=== PATIENT | female | born 1955 | race Caucasian/White ===

== ENCOUNTER 2016-11-25 15:09 | Emergency (ER) | payer MEDICARE, BC ==
--- NOTE | ~2016-11-25 | EKG ---
PATIENT: CHICO LÓPEZ UNIT #: [id number] Ventricular Rate: 95 BPM Atrial Rate: 95 BPM P-R Interval: 158 ms QRS Duration: 86 ms Q-T Interval: 368 ms QTC Calculation(Bezet): 462 ms P [place]: 54 degrees Calculated R [place]: -14 degrees Calculated T [place]: -5 degrees Diagnosis Line: Normal sinus rhythm Diagnosis Line: Voltage criteria for left ventricular hypertrophy Diagnosis Line: Abnormal ECG Diagnosis Line: When compared with ECG of 24-NOV-2016 15:14, Diagnosis Line: (unconfirmed) Diagnosis Line: No significant change was found Diagnosis Line: Confirmed by LIZ LEMONS MD ([id number]) on Diagnosis Line: 11/26/2016 4:11:07 PM INTERPRETING MD: VESTA FOX
--- NOTE | ~2016-11-25 | CR72 ---
[facility] A Service of [facility] RADIOLOGY TEXT RESULTS PATIENT: CHICO LÓPEZ LOCATION: [facility] : 54 UNIT #: [id number] AGE: [address]: Vin Campbell MD SEX: F ORDER DR: [id number] [facility] [address] [place], [place] [address] [id number] E MR#: [id number] Acc #: [id number] NAME: CHICO LÓPEZ. : 1955 SEX: F STUDY DATE/TIME: 11/25/2016 13:27 UNIT: [facility] ROOM: STUDY DESCRIPTION: CR Chest Single View Portable Attending Physician: Vin Campbell M.D. Ordering Physician: Ed Syed Tony M.D. Primary Care Physician: Micheal Bhatia M.D. MEDICAL IMAGING REPORT This report is preliminary unless electronic signature is present EXAM Chest portable, 11/25/2016 1327 hours HISTORY 61-year-old with dizziness, nausea, vomiting and shakiness with abdominal cramping today. Patient had shoulder dislocation and reset yesterday. COMPARISON 11/24/2016 FINDINGS Portable upright chest demonstrates improved lung volumes. Heart size appears normal. There is a tortuous descending thoracic aorta without change. Improved lung volumes demonstrate resolved atelectasis at the right base. There is linear plate-like atelectasis at the left base. There is no evidence of pneumonia, edema or effusion. Interval reduction of left shoulder dislocation. IMPRESSION 1. Improved lung volumes with resolved right basilar atelectasis. There is horizontal linear atelectasis at the left base. There is no evidence of pneumonia, edema or effusion. 2. Interval reduction of the left shoulder dislocation since 11/24/2016 at 1510 hours. Dictated by... Winsome Carmichael M.D. THIS IS AN ELECTRONICALLY VERIFIED REPORT Winsome Carmichael M.D. at 11/26/2016 9:26 AM IMANI/tenzin [facility] A Service of [facility] RADIOLOGY TEXT RESULTS PATIENT: CHICO LÓPEZ LOCATION: [facility] : 54 UNIT #: [id number] AGE: [address]: Vin Campbell MD SEX: F ORDER DR: TD: 11/25/2016 20:46 JOB #: [id number] MEDICAL IMAGING REPORT COPY
[2016-11-25 13:59] LABS: BASOPHIL% 0.3 % (0-2.5); EOSINOPHIL# 0.1 X10e3 (0-0.7); HEMATOCRIT 35.1 % (35.0-45.0); HEMOGLOBIN 11.8 gm/dL (12.0-16.0); LYMPHOCYTE# 0.9 X10e3 (1.0-3.5); LYMPHOCYTE% 8.5 % (17.0-45.0); MEAN CELL VOLUME 92.2 FL (83-96); MEAN CORPUSCULAR HEMOGLOBIN 30.9 PG (28-34); MEAN CORPUSCULAR HGB CONC 33.5 g/dL (30-36); MEAN PLATELET VOLUME 8.4 FL (6.5-11.5); MONOCYTE# 0.7 X10e3 (0-1.0); MONOCYTE% 6.6 % (3.0-12.0); NEUTROPHIL# 8.4 X10e3 (1.5-7.1); NEUTROPHIL% 83.6 % (40-75); PLATELET COUNT 159 X10e3 (140-420); RED CELL DISTRIBUTION WIDTH 14.8 % (11.0-15.5); WHITE BLOOD COUNT 10.1 X10e3 (4.0-10.5)
[2016-11-25 14:00] LABS: DIFF IND NO
[2016-11-25 14:31] LABS: ALBUMIN SERUM 3.9 g/dL (3.5-5.0); BILIRUBIN, DIRECT 0.1 mg/dL (0.0-0.2); BILIRUBIN,INDIRECT 0.8 mg/dL (0.0-0.9); BILIRUBIN,TOTAL 0.9 mg/dL (0.2-2.0); BUN/CREATININE RATIO 7.6; CALCIUM SERUM 9.2 mg/dL (8.4-10.2); CREATININE SERUM 4.6 mg/dL (0.6-1.4); GLOM FILT RATE Estimated 10.3 mL/min (>60); POTASSIUM 4.1 mmol/L (3.5-5.1)
[~2016-11-25 15:09] MED LIST: ACETAMINOPHEN PO; ALDOMET250 MG PO; ALLEGRA; ALLERGY RELIEF10 M3 PO; AMBIEN PO; AMLODIPINE BESYL5 MG PO; APRESOLINE PO; ASPIRIN; ATENOLOL PO; CALCIUM ACETAT667 M1 PO; CHROMAGEN FA1 UDCAP PO; CLONIDINE PO; IRON PO; LIPITOR; LISINOPRIL10 MG PO; LORTAB 5/500 TA1 TA1 PO; MINOXIDIL PO; NEPHROCAPS CAPSU1 MG PO; NORVASC PO; PATIENT'S PHARMACY; PHENERGAN PO; PHENERGAN PR; RENAGEL PO; RENAGEL400 MG; RENAGEL403 MG PO; SENSIPAR90 MG PO; SLOW FE160 MG; TEKTURNA PO; VASOTEC; VASOTEC PO; VESICARE; VICODIN 5/500 T1 TAB PO; VITAMIN B650 MG PO; ZOCOR PO; ZYRTEC PO; [UNRECOGNIZED DRUG - OTHER] PO
[2016-11-25 15:12] LABS: INFLUENZA A NEG (NEG); INFLUENZA B NEG (NEG)
[2016-11-25 15:36] LABS: POC - CKMB 1.5 ng/mL (0.0-7.9); POC - TROPONIN <0.05 ng/mL (<=0.05)
[2016-11-25 16:01] LABS: POC - CKMB 1.6 ng/mL (0.0-7.9); POC - TROPONIN <0.05 ng/mL (<=0.05)
== END 2016-11-25 17:00 | disposition home or self-care (01) ==
LOC: CED 15:09
PROVIDERS: Emergency Medicine
DX: R11.2 Nausea with vomiting, unspecified (principal); R50.9 Fever, unspecified; I12.0 Hypertensive chronic kidney disease with stage 5 chronic kidney disease or end stage renal disease; N18.6 End stage renal disease; I25.10 Atherosclerotic heart disease of native coronary artery without angina pectoris; Z90.710 Acquired absence of both cervix and uterus
CPT/HCPCS: 36415; 71010; 80048; 80076; 82553; 82947; 84484; 85025; 87804; 93005; 96372; 99283

== ENCOUNTER 2017-02-10 13:33 | Emergency (ER) | payer MEDICARE, BC ==
--- NOTE | ~2017-02-10 | CR226 ---
[facility] A Service of [facility] RADIOLOGY TEXT RESULTS PATIENT: CHICO LÓPEZ LOCATION: [facility] : 54 UNIT #: [id number] AGE: [address]: Cortez Burrell MD SEX: F ORDER DR: [id number] [facility] [address] [place], [place] [address] [id number] E MR#: [id number] Acc #: [id number] NAME: CHICO LÓPEZ. : 1955 SEX: F STUDY DATE/TIME: 02/10/2017 14:55 UNIT: [facility] ROOM: STUDY DESCRIPTION: CR Shoulder 1 View Lt Attending Physician: Cortez Burrell M.D. Ordering Physician: Cortez Burrell M.D. Primary Care Physician: Micheal Bhatia M.D. MEDICAL IMAGING REPORT This report is preliminary unless electronic signature is present EXAM Single AP view of the left shoulder DATE 02/10/2017 at 14:55 HISTORY Status post left shoulder reduction. Left shoulder dislocation today. COMPARISON AP left shoulder 02/10/2017 at 14:01 FINDINGS The previous left anterior inferior shoulder dislocation has been satisfactorily reduced. Glenohumeral alignment is satisfactory. No fracture is seen. There is no acromioclavicular or coracoclavicular separation. Imaged left ribs appear intact. IMPRESSION Satisfactory reduction of previous left shoulder dislocation. No fracture is seen. Dictated by... Benita Lugo M.D. THIS IS AN ELECTRONICALLY VERIFIED REPORT Benita Lugo M.D. at 02/13/2017 8:30 AM H/to TD: 02/10/2017 18:28 JOB #: [id number] MEDICAL IMAGING REPORT [facility] A Service of [facility] RADIOLOGY TEXT RESULTS PATIENT: CHICO LÓPEZ LOCATION: [facility] : 53 UNIT #: [id number] AGE: [address]: Cortez Burrell MD SEX: F ORDER DR: Page 1 of 1 COPY
--- NOTE | ~2017-02-10 | CR226 ---
[facility] A Service of [facility] & [facility] RADIOLOGY TEXT RESULTS PATIENT: CHICO LÓPEZ LOCATION: [facility] : 53 UNIT #: [id number] AGE: [address]: Cortez Burrell MD SEX: F ORDER DR: [id number] [facility] [address] [place], [place] [address] [id number] E MR#: [id number] Acc #: [id number] NAME: CHICO LÓPEZ. : 1955 SEX: F STUDY DATE/TIME: 02/10/2017 14:01 UNIT: [facility] ROOM: STUDY DESCRIPTION: CR Shoulder 1 View Lt Attending Physician: Cortez Burrell M.D. Ordering Physician: Ed Doctor [id number] [facility] Primary Care Physician: Micheal Bhatia M.D. MEDICAL IMAGING REPORT This report is preliminary unless electronic signature is present EXAM Left shoulder, 02/10/2017 14:01 hours HISTORY 61-year-old with acute onset of shoulder pain when reaching behind herself today. Possible dislocation. History of multiple dislocations previously. COMPARISON 11/24/2016 FINDINGS Single AP view left shoulder demonstrates the humeral head to be displaced medially in a subcoracoid location likely an anterior dislocation. The acromioclavicular joint is normal. IMPRESSION The humeral head is displaced medially sitting in a subcoracoid location on this single view, likely an acute anterior dislocation. No definite fracture seen. Suggest post reduction films. STAT * RESULT Dictated by... Winsome Carmichael M.D. THIS IS AN ELECTRONICALLY VERIFIED REPORT Winsome Carmichael M.D. at 02/10/2017 2:29 PM Genny TD: 02/10/2017 14:19 JOB #: [id number] [facility] A Service of [facility] & [facility] RADIOLOGY TEXT RESULTS PATIENT: CHICO LÓPEZ LOCATION: [facility] #: [id number] : 53 UNIT #: [id number] AGE: [address]: Cortez Burrell MD SEX: F ORDER DR: MEDICAL IMAGING REPORT Page 1 of 1 COPY
== END 2017-02-10 15:56 | disposition home or self-care (01) ==
LOC: CED 13:33
DX: S43.005A Unspecified dislocation of left shoulder joint, initial encounter (principal); X50.9XXA Other and unspecified overexertion or strenuous movements or postures, initial encounter; Y92.009 Unspecified place in unspecified non-institutional (private) residence as the place of occurrence of the external cause; N18.6 End stage renal disease; Z88.5 Allergy status to narcotic agent
CPT/HCPCS: 23650; 73020; 96374; 96375; 99152; 99284; J3010

== ENCOUNTER 2017-03-06 18:23 | Emergency (ER) | payer MEDICARE, BC ==
--- NOTE | ~2017-03-06 | CR226 ---
[facility] A Service of [facility] & [facility] RADIOLOGY TEXT RESULTS PATIENT: CHICO LÓPEZ LOCATION: [facility] : 53 UNIT #: [id number] AGE: [address]: Cortez Burrell MD SEX: F ORDER DR: [id number] [facility] [address] [place], [place] [address] [id number] E MR#: [id number] Acc #: [id number] NAME: CHICO LÓPEZ : 1955 SEX: F STUDY DATE/TIME: 03/06/2017 19:46 UNIT: [facility] ROOM: STUDY DESCRIPTION: CR Shoulder 1 View Lt Attending Physician: Cortez Burrell M.D. Ordering Physician: Cortez Burrell M.D. Primary Care Physician: Micheal Bhatia M.D. MEDICAL IMAGING REPORT This report is preliminary unless electronic signature is present EXAM Left shoulder series. INDICATION Left shoulder dislocation. Dislocation today. Post reduction image. PROCEDURE Single frontal view of the left shoulder. COMPARISON Earlier the same day. FINDINGS Left shoulder appears to be reduced on this single image. No visible fracture. IMPRESSION Apparent successful reduction on the single frontal image. Dictated by... Vasquez Chavarria M.D. THIS IS AN ELECTRONICALLY VERIFIED REPORT Vasquez Chavarria M.D. at 03/07/2017 9:30 AM MAURO/olga TD: 03/06/2017 21:56 JOB #: [id number] MEDICAL IMAGING REPORT Page 1 of 1 COPY
--- NOTE | ~2017-03-06 | CR229 ---
[facility] A Service of [facility] & [facility] RADIOLOGY TEXT RESULTS PATIENT: CHICO LÓPEZ LOCATION: [facility] : 53 UNIT #: [id number] AGE: [address]: Cortez Burrell MD SEX: F ORDER DR: [id number] [facility] [address] [place], [place] [address] [id number] E MR#: [id number] Acc #: [id number] NAME: CHICO LÓPEZ. : 1955 SEX: F STUDY DATE/TIME: 03/06/2017 18:52 UNIT: [facility] ROOM: STUDY DESCRIPTION: CR Shoulder Min 2 View Lt Attending Physician: Cortez Burrell M.D. Ordering Physician: Isrrael Tony M.D. Primary Care Physician: Micheal Bhatia M.D. MEDICAL IMAGING REPORT This report is preliminary unless electronic signature is present EXAM Left shoulder series INDICATIONS Left shoulder pain after an injury today. PROCEDURE Three views of the left shoulder. COMPARISON 02/10/2017 FINDINGS Anterior shoulder dislocation. No visible fracture fragment. IMPRESSION Anterior shoulder dislocation. Dictated by... Vasquez Chavarria M.D. THIS IS AN ELECTRONICALLY VERIFIED REPORT Vasquez Chavarria M.D. at 03/07/2017 9:30 AM EED/tenzin TD: 03/06/2017 21:20 JOB #: [id number] MEDICAL IMAGING REPORT Page 1 of 1 COPY
== END 2017-03-06 20:33 | disposition home or self-care (01) ==
LOC: CED 18:23
DX: S43.085A Other dislocation of left shoulder joint, initial encounter (principal); I12.0 Hypertensive chronic kidney disease with stage 5 chronic kidney disease or end stage renal disease; N18.6 End stage renal disease; E78.5 Hyperlipidemia, unspecified; Z88.5 Allergy status to narcotic agent; X50.9XXA Other and unspecified overexertion or strenuous movements or postures, initial encounter; Y92.009 Unspecified place in unspecified non-institutional (private) residence as the place of occurrence of the external cause
CPT/HCPCS: 23650; 73020; 73030; 96374; 99152; 99153; 99283; J2270

== ENCOUNTER 2017-03-18 16:24 | Emergency (ER) | payer MEDICARE, BC ==
--- NOTE | ~2017-03-18 | CR229 ---
[facility] A Service of [facility] RADIOLOGY TEXT RESULTS PATIENT: CHICO LÓPEZ LOCATION: [facility] : 53 UNIT #: [id number] AGE: [address]: Royce Pena MD SEX: F ORDER DR: [id number] [facility] [address] [place], [place] [address] [id number] E MR#: [id number] Acc #: [id number] NAME: CHICO LÓPEZ : 1955 SEX: F STUDY DATE/TIME: 03/18/2017 17:21 UNIT: [facility] ROOM: STUDY DESCRIPTION: CR Shoulder Min 2 View Lt Attending Physician: Royce Pena M.D. Ordering Physician: Ed Syed Tony M.D. Primary Care Physician: Micheal Bhatia M.D. MEDICAL IMAGING REPORT This report is preliminary unless electronic signature is present EXAM Left shoulder. INDICATION Trauma. Left shoulder pain. FINDINGS Three views of the left shoulder compared to 03/06/2017. There is an anterior shoulder dislocation. No fractures identified. Postreduction radiographs recommended. The acromioclavicular articulations are within normal limits. IMPRESSION Anterior left shoulder dislocation. Dictated by... Bob Leggett M.D. THIS IS AN ELECTRONICALLY VERIFIED REPORT Bob Leggett M.D. at 03/19/2017 8:43 AM RUFUS/olga TD: 03/19/2017 01:03 JOB #: [id number] MEDICAL IMAGING REPORT Page 1 of 1 COPY
--- NOTE | ~2017-03-18 | CR229 ---
[facility] A Service of [facility] & [facility] RADIOLOGY TEXT RESULTS PATIENT: CHICO LÓPEZ LOCATION: [facility] : 53 UNIT #: [id number] AGE: [address]: Royce Pena MD SEX: F ORDER DR: [id number] [facility] [address] [place], [place] [address] [id number] E MR#: [id number] Acc #: [id number] NAME: CHICO LÓPEZ : 1955 SEX: F STUDY DATE/TIME: 03/18/2017 19:59 UNIT: [facility] ROOM: STUDY DESCRIPTION: CR Shoulder Min 2 View Lt Attending Physician: Royce Pena M.D. Ordering Physician: Royce Pena M.D. Primary Care Physician: Micheal Bhatia M.D. MEDICAL IMAGING REPORT This report is preliminary unless electronic signature is present EXAM Left shoulder two views HISTORY Pain for one day, injured getting up from toilet seat. FINDINGS AP view with internal and external rotation of the shoulder girdle shows satisfactory relationship of the humeral head and glenoid fossa. The joint space is normal. There is no identifiable fracture or dislocation or bony destructive process about the shoulder girdle anatomy. The acromioclavicular joint is normal. There is no radiopaque foreign body in the region. IMPRESSION Normal shoulder. Dictated by... Eduard Monroy M.D. THIS IS AN ELECTRONICALLY VERIFIED REPORT Eduard Monroy M.D. at 03/21/2017 5:34 PM MIN/cristina TD: 03/19/2017 05:25 JOB #: [id number] MEDICAL IMAGING REPORT Page 1 of 1 COPY
== END 2017-03-18 20:40 | disposition home or self-care (01) ==
LOC: CED 16:24
DX: S43.015A Anterior dislocation of left humerus, initial encounter (principal); I10 Essential (primary) hypertension; N28.9 Disorder of kidney and ureter, unspecified; X50.9XXA Other and unspecified overexertion or strenuous movements or postures, initial encounter; Y92.009 Unspecified place in unspecified non-institutional (private) residence as the place of occurrence of the external cause
CPT/HCPCS: 23650; 73030; 96374; 99152; 99283; J2405